=== PATIENT | female | born 1985 | race Caucasian/White ===

== ENCOUNTER → 2018-01-07 | Outpatient (CLI) | payer MEDICAID ==
[~2018-01-07] MED LIST: ADDERALL 10 MG10 MG PO; ADDERALL 5 MG TA5 M1 PO; BACLOFEN20 MG PO; CARBAMAZEPINE200 M2 PO; CARBAMAZEPINE200 M4 PO; HM ACETAMINOPH1 EAC1 PO; HYDROCODONE-AP1 EAC6 PO; IBUPROFEN200 M2 PO; LYRICA 75 MG CA75 MG PO; NEURONTIN 300300 M1 PO; PROVIGIL 100 M100 M1 PO; TIZANIDINE HCL4 M1 PO
--- NOTE | 2018-01-12 07:49 | PAINCON ---
[facility] [address] [place] [address] PAIN MANAGEMENT CONSULTATION Name: JOSEFA HERNANDEZ 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 Comorbidity includes hypersomnolence. Last visit, 10/15/2017. We added Adderall 10 mg b.i.d. with good efficacy. She is continued on Lyrica 75 mg b.i.d., carbamazepine 200 mg t.i.d., baclofen 20 mg 1-2 tablets b.i.d. Returns to the pain clinic today noting medications are providing sufficient analgesia to participate in activities of daily living. Rates her subjective pain score of 5 on a VAS. Chronic pain, right arm and leg. She does have choreoathetoid movement in the right upper extremity. She did quit smoking greater than a year ago and to her credit, she has been stable with this. PHYSICAL EXAMINATION: VITAL SIGNS: Show a 5 feet 1 inch, 136 pounds female, BMI is 25.8 kilograms per meter squared. Blood pressure 106/69, pulse 91, respirations 16. NEUROLOGIC: Alert and oriented to person, place and time, judged to be a reasonable historian. MUSCULOSKELETAL: She typically sits on her right arm to avoid choreoathetoid movement. Has an antalgic gait favoring the left leg. She has limited strength and range of motion in the right lower extremity, though better controlled than she does in the upper extremity. ASSESSMENT: Neuropathic pain, status post cerebrovascular accident, right upper extremity spasticity, component of hypersomnolence, doing well on current medication. We reviewed the fact that opiate medications are being used to provide analgesia adequate to support activities of daily living, not attempting to achieve a specific pain score on the 0-10 Visual Analog Scale. The current opiate medications are providing sufficient analgesia to allow the patient to participate in activities of daily living. The patient is not exhibiting any aberrant behavior suggestive of drug diversion. The patient is not having any adverse reactions to medications. The patient is not suffering from daytime somnolence or mental acuity changes. The patient is managing opiate-induced constipation with appropriate exog-xfb-owdjfak agents and dietary considerations. The patient was counseled on concern for caution with operating a motor vehicle [place] [address] PAIN MANAGEMENT CONSULTATION Name: JOSEFA HERNANDEZ Room: [facility] Spring#: [id number] Admission: 01/07/18 Attend Phys: Willis Caldwell Discharge: Date of : 81 Report #: [id number] A physical exam was performed and the patient's functional status was evaluated. All patients with back pain were advised against the bed rest greater than 4 days and were advised to return to normal activities. Pain score assessment was noted and the treatment plan was reviewed with the patient. All current medications, both prescribed and OTC were reviewed and reconciled on the electronic medical record. Tobacco screening was accomplished and smoking cessation was advised when indicated. BMI was noted and diet/exercise modification was recommended for all patients following outside normal parameters. I reviewed with the patient today their responsibilities to safeguard prescription medications, reviewed their responsibility to utilize medications only as prescribed by the physician. They are to seek and receive pain medications only from 1 physician group ( [facility]). They are to use 1 pharmacy and keep the clinic informed if they change pharmacies. Their responsibilities include making followup visits in a timely fashion and to avoid abrupt discontinuation of medication usage. Their responsibilities further include bringing their medications (bottles from the pharmacy with residual pills) to the visit for possible confirmation of pill counts and the patient understands it is their responsibility to submit to random drug screens to ensure both that the medications prescribed are present, and that no other controlled substances are present. All prescriptions provided today were generated electronically. RECOMMENDATIONS: 1. Buccal drug swab today. Should show Adderall is the only controlled substance, should show Lyrica, carbamazepine and baclofen. 2. Renew current medication unchanged, Adderall 10 mg b.i.d., Lyrica 75 mg b.i.d. She does not require renewal for carbamazepine 200 mg 1 tablet 2-3 times a day, baclofen 20 mg 1-2 tablets b.i.d. <ELECTRONICALLY SIGNED> By: Noe Persaud DO 01/12/18 0749 1230 [id number] Persaud DO /nt
== END ==
LOC: M.PC 01:42
DX: M79.2 Neuralgia and neuritis, unspecified (principal); M79.601 Pain in right arm; M79.604 Pain in right leg; G47.10 Hypersomnia, unspecified; R25.2 Cramp and spasm; Z86.73 Personal history of transient ischemic attack (TIA), and cerebral infarction without residual deficits

== ENCOUNTER → 2018-04-01 | Outpatient (CLI) | payer MEDICAID ==
--- NOTE | 2018-04-02 07:19 | PAINCON ---
[facility] [address] [place] [address] PAIN MANAGEMENT CONSULTATION Name: JOSEFA HERNANDEZ Room: [facility] Spring#: [id number] Admission: 04/01/18 Attend Phys: Willis Caldwell Discharge: Date of : 81 Report #: [id number] THIS REPORT FOR: //name// CC: Luis Carlos Rodrigez FAM unknown Noe Persaud DATE OF SERVICE: 04/01/2018 The patient is a very pleasant 32-year-old female I have treated off and on since 2008 for significant neuropathic pain. She had a childhood cerebrovascular accident (age 2). Has significant neuropathic pain, right upper and lower extremity. She exhibits choreoathetoid movement of the right arm, over which she has no control. She has been remarkably stable on current medication. She has some attention deficit disorder and medication induced somnolence. She uses baclofen 20 mg typically 2 tablets 3 times a day, carbamazepine 200 mg 1 tablet b.i.d. with an occasional second tablet in the evening, limit 75 tablets for 30 days, Lyrica 75 mg b.i.d., and Adderall 10 mg b.i.d. with some dwindling efficacy. Last random drug screen 01/07/2018 was positive for prescribed medications and no others. She does have nicotine in the random drug screen. She quit smoking years ago, but does occasionally use an e-cigarette. PHYSICAL EXAMINATION: Today is unchanged. Very pleasant 5 feet 1 inch, 131-pound female, BMI is 25 kilograms per meter squared. Blood pressure 115/89, pulse 79, respirations 16. Alert and oriented to person, place and time, judged to be a reasonable historian. Does have choreoathetoid movement of the right arm, weakness in the right leg, neuropathic pain on right side. Doing well on current medication. We reviewed the fact that opiate medications are being used to provide analgesia adequate to support activities of daily living, not attempting to achieve a specific pain score on the 0-10 Visual Analog Scale. The current opiate medications are providing sufficient analgesia to allow the patient to participate in activities of daily living. The patient is not exhibiting any aberrant behavior suggestive of drug diversion. The patient is not having any adverse reactions to medications. The patient is not suffering from daytime somnolence or mental acuity changes. The patient is managing opiate-induced constipation with appropriate ltgm-fit-jwwjkii agents and dietary considerations. The patient was counseled on concern for caution with operating a motor vehicle while using opiate medications. A physical exam was performed and the patient's functional status was evaluated. All patients with back pain were advised against the bed rest greater than 4 days and were advised to return to normal activities[place] [address] PAIN MANAGEMENT CONSULTATION Name: JOSEFA HERNANDEZ [facility] [id number] Admission: 04/01/18 Attend Phys: Willis Caldwell Discharge: Date of : 81 Report #: [id number] noted and the treatment plan was reviewed with the patient. All current medications, both prescribed and OTC were reviewed and reconciled on the electronic medical record. Tobacco screening was accomplished and smoking cessation was advised when indicated. BMI was noted and diet/exercise modification was recommended for all patients following outside normal parameters. I reviewed with the patient today their responsibilities to safeguard prescription medications, reviewed their responsibility to utilize medications only as prescribed by the physician. They are to seek and receive pain medications only from 1 physician group ( [facility]). They are to use 1 pharmacy and keep the clinic informed if they change pharmacies. Their responsibilities include making followup visits in a timely fashion and to avoid abrupt discontinuation of medication usage. Their responsibilities further include bringing their medications (bottles from the pharmacy with residual pills) to the visit for possible confirmation of pill counts and the patient understands it is their responsibility to submit to random drug screens to ensure both that the medications prescribed are present, and that no other controlled substances are present. All prescriptions provided today were generated electronically. ASSESSMENT: Chronic neuropathic pain status post childhood cerebrovascular accident with hypersomnolence due to medication and possible component of attention deficit disorder. RECOMMENDATIONS: We will increase Adderall to 1 in the morning and 2 in the afternoon, dispense 90 tablets. Continue Lyrica 75 mg b.i.d., baclofen 20 mg 2 tablets t.i.d., 180 tablets and carbamazepine 200 mg as directed, 1 in the morning, 1-2 at night, 75 tablets for 30 days. I did tell the patient I will be leaving the practice. She should contact her third alliance party payer and see if there is another pain clinic physician in her network. Otherwise, I will ask Dr. Tim Benitez to continue caring for this delightful hardworking 32-year-old mother of, I believe 3 children. Discharged in good and stable condition. <ELECTRONICALLY SIGNED> By: Noe Persaud DO 04/02/18 0719 1506 26Noe Persaud DO /nt
== END ==
LOC: M.PC 12-03 08:50
DX: G89.29 Other chronic pain (principal); M79.2 Neuralgia and neuritis, unspecified; M79.621 Pain in right upper arm; M79.661 Pain in right lower leg

== ENCOUNTER → 2018-07-02 | Outpatient (CLI) | payer MEDICAID ==
--- NOTE | 2018-07-24 17:38 | PAINCON ---
[address] [address] PAIN MANAGEMENT CONSULTATION Name: JOSEFA HERNANDEZ Room: [facility] JS Spring#: [id number] Admission: 07/02/18 Attend Phys: Carson Benitez MD Discharge: Date of : 81 Report #: [id number] THIS REPORT FOR: //name// CC: Luis Carlos Benitez DATE OF SERVICE: 07/02/2018 FOLLOWUP HISTORY: The patient is a 33-year-old female who has been followed in the pain clinic by Dr. Noe Persaud. She has been working with her for a number of years. She has returned to the pain clinic for renewal of her medications. As you may recall, she is a very pleasant 33-year-old female who has had significant neuropathic pain and problems since 2008. When she was a child, she had a cerebrovascular accident at age 2. She has significant neuropathic pain in right upper and lower extremities. She exhibits choreoathetoid movement of her right arm, over which she has no control. She has been remarkably steady over her course with her current medication management. She has some problems with attention deficit disorder and medication-induced somnolence. She has been using baclofen 20 mg with carbamazepine and Lyrica. Adderall is helpful as well. The patient has been appropriate with her drug screens. She has returned today for renewal of her medications. ALLERGIES: No known drug allergies. MEDICATIONS: Adderall 10 mg, baclofen 20 mg, carbamazepine 200 mg 1-2 tablets at bedtime, ibuprofen 200 mg, and Lyrica 75 mg. PAST MEDICAL HISTORY: Cerebrovascular accident at age 2 with neuropathic pain. PAST SURGICAL HISTORY: Right foot pain about 1989. Z-plasty of the tendons of her right foot for release of contractures. SOCIAL HISTORY: She is now housewife. REVIEW OF SYSTEMS: As per HPI. PAIN CLINIC ASSESSMENT: 1. The patient is not being treated for osteoarthritis or rheumatoid arthritis. 2. Height 5 feet 1 inch, weight 126 pounds, BMI is 23.8. Vital signs: Blood pressure 141/92, heart rate 104, respiratory rate 16, room air saturation 98%, and temperature 98.1. Pain score 4/10. 3. Pain intensity, usually 1-2. 4. Fall risk. The patient has not fallen in the last 3 months. 5. Blood thinner. The patient is not on a blood thinning medication. 6. Hypertension. The patient [place] [address] PAIN MANAGEMENT CONSULTATION Name: JOSEFA HERNANDEZ Room: [facility]#: [id number] Admission: 07/02/18 Attend Phys: Carson Benitez MD Discharge: Date of : 81 Report #: [id number] 7. Opioid therapy greater than 6 weeks. The patient does receive medications through the pain clinic, which she finds helpful in controlling her neuropathic pain. 8. Functional assessment tool. 9. Recreational drug use. The patient denies use of recreational drugs. 10. Tobacco: The patient smokes less than half pack of cigarettes per day, smoked 20 years. 11. Alcohol: The patient denies use of alcoholic beverages. PHYSICAL EXAMINATION: GENERAL: The patient is a well-developed white female, who appears her stated age. She has pain and discomfort involving her fingers on the right arm and right leg. HEART: Regular rate. ABDOMEN: Nontender. MUSCULOSKELETAL: The patient has a flaccid right arm. She does have a choreoathetoid movement of her right arm, weakness in the right leg, neuropathic pain on the right side. IMPRESSION: Chronic pain involving the right side, status post cerebrovascular accident at age 2 years. RECOMMENDATIONS: We will continue with her current medical regimen of baclofen 20 mg, Adderall 10 mg, the patient will follow up in the future as needed. We would like to thank you for letting us participate in her care. We hope she continues to improve. <ELECTRONICALLY SIGNED> By: Carson Benitez MD 07/24/18 1738 [id number] [id number]. Tim Benitez MD /nt
== END ==
LOC: M.PC 06-25 09:40
DX: G89.29 Other chronic pain (principal); M25.511 Pain in right shoulder; M25.561 Pain in right knee; Z79.899 Other long term (current) drug therapy

== ENCOUNTER → 2018-09-24 | Outpatient (CLI) | payer MEDICAID ==
--- NOTE | 2018-09-30 16:38 | PAINCON ---
[address] [address] PAIN MANAGEMENT CONSULTATION Name: JOSEFA HERNANDEZ Room: [facility] Spring#: [id number] Admission: 09/24/18 Attend Phys: Carson Benitez MD Discharge: Date of : 81 Report #: [id number] THIS REPORT FOR: //name// CC: Luis Carlos Benitez DATE OF SERVICE: 09/24/2018 CHIEF COMPLAINT: Here for medication renewal. HISTORY OF PRESENT ILLNESS: The patient is a 33-year-old female, who has been followed in the pain clinic for some time. As you may recall, she has chronic pain. She has returned today for renewal of her medications. She continues to have significant neuropathic pain, which has been problematic since 2008. She suffered a cardiovascular accident at age 2. She has had significant neuropathic pain on her right upper and lower extremities. She exhibits choreoathetoid movements of her right arm. She has little to no control. She has been stable over the course of her medication management. Receives her medications from one source, the pain clinic. Feels that things are working reasonably well. She has some problems with attention deficit disorder. She continues to use baclofen and carbamazepine in conjunction with Lyrica. Adderall, continues to be helpful as well. Feels that these medications are appropriate and continue to be helpful and has returned today for renewal of them. ALLERGIES: No known drug allergies. CURRENT MEDICATIONS: Adderall 10 mg, baclofen 20 mg, carbamazepine 200 mg 1-2 tablets at bedtime, ibuprofen 200 mg, and Lyrica 75 mg. PAIN CLINIC ASSESSMENT/PQRS: 1. The patient is not being treated for osteoarthritis or rheumatoid arthritis. 2. Height 5 feet 1 inch, weight 124 pounds, BMI is 24. 3. Vital signs: Blood pressure 112/68, heart rate 100, respiratory rate 16, room air saturation again was 100, and temperature 98.0. 4. Pain intensity 5/10. 5. Fall risk. The patient has not fallen in the last 3 months. 6. Blood thinner. The patient is not on a blood thinning medication. 7. Hypertension, none. 8. Opioid therapy greater than 6 weeks. The patient receives her medication from one source, the pain clinic. 9. Risk assessment tool, low for opioid use. 10. Functional assessment tool. 11. Recreational drug use. The patient denies use of recreational drugs. 12. Tobacco: The patient smokes 1-2 cigarettes per day. We discussed the virtues of smoking cessation. The patient [place] [address] PAIN MANAGEMENT CONSULTATION Name: JOSEFA HERNANDEZ Room: [facility]#: [id number] Admission: 09/24/18 Attend Phys: Carson Benitez MD Discharge: Date of : 81 Report #: [id number] health. 13. Alcohol: The patient rarely drinks alcoholic beverages. PHYSICAL EXAMINATION: GENERAL: The patient is a well-developed female. Appears her stated age. She is alert and oriented x 3. NECK: Has no JVD or adenopathy. EXTREMITIES: Right upper extremity is flaccid and the patient has lack of control. Right side lower extremity is weak as well. The patient walks with an antalgic gait. ABDOMEN: Nontender. Bowel sounds present. MUSCULOSKELETAL: The patient without significant kyphosis, scoliosis. IMPRESSION: Chronic pain involving the right side. Status post cerebrovascular accident at age 2. RECOMMENDATIONS: We discussed treatment options with the patient. We will continue with her current medications. We have dispensed her medications, which include Adderall 10 mg 1 p.o. a.m., 2 at noon. Baclofen 20 mg 2 tablets a.m. t.i.d. Carbamazepine 2 tablets a.m., at bedtime. Lyrica 75 mg b.i.d. We would like to thank you for letting us participate in her care. We hope she continues to improve. <ELECTRONICALLY SIGNED> By: Carson Benitez MD 09/30/18 1638 [id number] [id number]. Tim Benitez MD /brian
== END ==
LOC: M.PC 05:07
DX: G89.29 Other chronic pain (principal); G62.9 Polyneuropathy, unspecified; Z79.899 Other long term (current) drug therapy; Z86.73 Personal history of transient ischemic attack (TIA), and cerebral infarction without residual deficits

== ENCOUNTER → 2018-12-17 | Outpatient (CLI) | payer MEDICAID ==
--- NOTE | ~2018-12-17 | PAINCON ---
[address] [address] PAIN MANAGEMENT CONSULTATION Name: JOSEFA HERNANDEZ Room: [facility] MARK GibbsKenn.#: [id number] Admission: 12/17/18 Attend Phys: Carson Benitez MD Discharge: Date of : 81 Report #: [id number] THIS REPORT FOR: //name// CC: Luis Carlos Hercules DATE OF SERVICE: 12/17/2018 CHIEF COMPLAINT: Here for medication renewal, things are going pretty well. HISTORY: The patient is a 33-year-old female who has been followed in the pain clinic because of chronic pain. As you may recall, she has right arm pain and weakness. She suffers from neuropathic pain, which has been problematic since 2008. She suffered a cardiovascular accident at age 2. She has had problems with the neuropathic pain for these years. Has a little control of her right arm. Overall, feels that things are stable with use of her current medication regimen. She does have some problem with attention deficit disorder. Continues to find that baclofen, carbamazepine and Lyrica are helpful. Adderall is well tolerated. She has returned today for renewal of her medications. ALLERGIES: No known drug allergies. MEDICATIONS: Adderall 10 mg, baclofen 20 mg, carbamazepine 200 mg 2 tablets to 2 tablets at bedtime, ibuprofen 200 mg, Lyrica 75 mg. PAIN CLINIC ASSESSMENT/PQRS: 1. The patient is not being treated for rheumatoid arthritis or osteoarthritis. 2. Height 5 feet 1 inch, weight 124 pounds, BMI is 24. 3. Vital Signs: Blood pressure 106/69, heart rate 84, respiratory rate 16, room air saturation 99%, temperature 98.1. 4. Pain intensity score 6/10. 5. Fall risk. The patient has not fallen in the last 3 months. 6. Blood thinner. The patient is not on a blood thinning medication. 7. Hypertension. The patient is not being treated for hypertension. 8. Opioid greater than 6 weeks. The patient receives her [facility]. 9. Risk assessment tool, low for opioid use. 10. Functional assessment tool. 11. Recreational drug use. The patient denies use of recreational drugs. 12. Tobacco: The patient smokes 1-2 cigarettes per day. Discussed the virtues of smoking cessation. 13. Alcohol: The patient denies use of alcoholic beverages. PHYSICAL EXAMINATION: GENERAL: The patient is a well-developed, well-[place] [address] PAIN MANAGEMENT CONSULTATION Name: JOSEFA HERNANDEZ Room: [facility]#: [id number] Admission: 12/17/18 Attend Phys: Carson Benitez MD Discharge: Date of : 81 Report #: [id number] her stated age. She is alert and oriented x 3. Affect is appropriate. Speech is fluent. HEENT: Normocephalic, atraumatic. Extraocular eye muscles intact. Sclerae nonicteric. Mucous membranes are moist. Upper extremity muscle straight is lacking 3 or 2/5. Had flaccid weakness. Left upper extremity, judged to be 5/5 for the major muscle groups. The patient does have a slight antalgic gait. ABDOMEN: Nontender. Bowel sounds present. MUSCULOSKELETAL: Without significant scoliosis, kyphosis or lordosis. IMPRESSION: 1. Chronic pain on the right side, status post cerebrovascular accident in 06/20/2018. 2. Tobacco use. RECOMMENDATIONS: We discussed treatment options with the patient. At this juncture, we will continue with her current medications. A script for her medications for Adderall 10 mg 1 p.o. q.a.m. and 2 at noon have been written. Baclofen 20 mg 2 tablets t.i.d., carbamazepine 2 tablets in a.m., Lyrica 75 mg b.i.d. The patient will continue with her current medications. She will call us if she has any concerns. We would like to thank you for letting us participate in her care. We hope she continues to improve. By: [id number] [id number]. Tim Benitez MD /YOLANDA
== END ==
LOC: M.PC 09:00
DX: I10 Essential (primary) hypertension (principal); G89.29 Other chronic pain; Z72.0 Tobacco use; Z86.73 Personal history of transient ischemic attack (TIA), and cerebral infarction without residual deficits; Z79.899 Other long term (current) drug therapy

== ENCOUNTER → 2018-12-25 | Outpatient (CLI) | payer MEDICAID | LOC: M.RAD 10:54 | DX: G56.02 Carpal tunnel syndrome, left upper limb (principal) ==

== ENCOUNTER → 2019-03-11 | Outpatient (CLI) | payer MEDICAID ==
--- NOTE | ~2019-03-11 | PAINCON ---
[address] [address] PAIN MANAGEMENT CONSULTATION Name: JOSEFA HERNANDEZ Room: [facility].#: [id number] Admission: 03/11/19 Attend Phys: Carson Benitez MD Discharge: Date of : 81 Report #: [id number] THIS REPORT FOR: //name// CC: Luis Carlos Benitez DATE OF SERVICE: 03/11/2019 CHIEF COMPLAINT: Right arm pain. HISTORY: The patient is a 33-year-old female who has been followed in the pain clinic. As you recall, she suffers from right hemiparesis with neuropathic pain. She has had a thalamic pain syndrome. This was problematic after she suffered a cardiovascular accident at age 2. She continues to have weakness in her right arm. She has very little control of extremity. She feels that her medications are helpful. She states that she always takes her medications. She has had no complication from them. Notes that if she does not take the Adderall that she finds that she is quite sleepy. Overall, things are going reasonably well. She is excited about this spring time and warming of temperatures. ALLERGIES: No known drug allergies. CURRENT MEDICATIONS: Adderall 10 mg, baclofen 20 mg, carbamazepine 20 mg 2 tablets at bedtime, 2 tablets in the morning, ibuprofen 200 mg, and Lyrica 75 mg. PAIN CLINIC ASSESSMENT/PQRS: 1. The patient has not been treated for rheumatoid arthritis or osteoarthritis. 2. Height 5 feet 1 inch, weight 120 pounds, BMI is 22.9. 3. Vital Signs: Blood pressure 114/76, heart rate 87, respiratory rate 16, room air saturation 98%, temperature 98.1. 4. Pain intensity 0/10. 5. Fall history: The patient has not fallen in the last 3 months. 6. Blood thinner. The patient is not on a blood thinning medication. 7. Hypertension. The patient is not being treated for hypertension. 8. Opiates greater than 6 weeks. The patient receives her medications from [facility] source, [facility]. 9. Risk assessment tool, low for opioid use. 10. Functional assessment tool. 11. Recreational drug use. The patient denies use of recreational drugs. 12. Tobacco: The patient smokes 1-2 cigarettes per day. Discussed the benefits of smoking cessation. 13. Alcohol: The patient denies use of alcoholic beverages, except on once or twice yearly. PHYSICAL EXAMINATION: [place] [address] PAIN MANAGEMENT CONSULTATION Name: JOSEFA HERNANDEZ Room: [facility]#: [id number] Admission: 03/11/19 Attend Phys: Carson Benitez MD Discharge: Date of : 81 Report #: [id number] GENERAL: The patient is a well-developed, well-nourished white female. Appears her stated age. She is alert and oriented x 3. Her affect is appropriate. Speech is fluent. HEENT: Normocephalic, atraumatic. Extraocular eye muscles intact. Sclerae nonicteric. Mucous membranes moist. HEART: Regular rate. ABDOMEN: Nontender. EXTREMITIES: Upper extremity muscle strength on the left is 5/5. Right, the patient has some flaccid weakness in the upper extremity. She uses her left arm to move her right arm. The patient has a slight antalgic gait. ABDOMEN: Nontender. Bowel sounds present. MUSCULOSKELETAL: Without significant scoliosis, kyphosis or lordosis. IMPRESSION: 1. Chronic pain on the right side, status post cardiovascular accident with neuropathic pain. 2. Thalamic pain syndrome. 3. Tobacco use. RECOMMENDATIONS: We discussed treatment options with the patient. Risk and benefits of her medications have been discussed. She feels that her medications are working well. She has had no problems with them. We would like to continue with her medications. She will return in 3 months. A script for the carbamazepine 200 mg 1 p.o. 2 tablets q.a.m. 2 tablets at bedtime, Adderall 10 mg 1 p.o. a.m., 2 at noon. We would like to thank you for letting us participate in her care. We hope she continues to improve. By: [id number]. Tim Benitez MD /brian
== END ==
LOC: M.PC 04:22
DX: G81.91 Hemiplegia, unspecified affecting right dominant side (principal); G89.0 Central pain syndrome; F17.210 Nicotine dependence, cigarettes, uncomplicated; Z79.899 Other long term (current) drug therapy; Z79.891 Long term (current) use of opiate analgesic; Z86.73 Personal history of transient ischemic attack (TIA), and cerebral infarction without residual deficits

== ENCOUNTER → 2019-06-03 | Outpatient (CLI) | payer MEDICAID ==
--- NOTE | ~2019-06-03 | PAINCON ---
[address] [address] PAIN MANAGEMENT CONSULTATION Name: JOSEFA HERNANDEZ Room: [facility].#: [id number] Admission: 06/03/19 Attend Phys: Carson Benitez MD Discharge: Date of : 81 Report #: [id number] THIS REPORT FOR: //name// CC: Luis Carlos Hercules DATE OF SERVICE: 06/03/2019 CHIEF COMPLAINT: Here for pain medicines for neuropathic pain. HISTORY: The patient is a 33-year-old female who has been followed in the Pain Clinic because of chronic pain. She has some weakness on her right side. She has chronic pain. As you recall, she suffers from right hemiparesis with neuropathic pain. She had a thalamic stroke at age 2. She continues to have weakness in her right arm. She has little control of the extremity. She is noting increased pain and discomfort in the shoulder. She has been told that she has bone spurs in her shoulder. She is going to undergo surgery to help decrease this pain condition. Feels that her medications continue to be helpful. She has returned today with the hopes of renewing her medications. ALLERGIES: No known drug allergies. CURRENT MEDICATIONS: Adderall 10 mg, baclofen 20 mg, carbamazepine 20 mg 2 tablets at bedtime, 2 tablets in the morning, ibuprofen 200 mg, and Lyrica 75 mg. PAIN CLINIC ASSESSMENT/PQRS: 1. The patient has not been treated for rheumatoid arthritis or osteoarthritis, but has some arthritic changes in her right shoulder with bone spurs. 2. Height 5 feet 1 inch, weight 115 pounds, BMI is 21.8. 3. Vital Signs: Blood pressure 115/73, heart rate 103, respiratory rate 18, room air saturation 98%. 4. Pain intensity is 6/10. 5. Fall history: The patient has not fallen in the last 3 months. 6. Blood thinner. The patient is not on a blood thinning medication. 7. Hypertension. The patient is not being treated for hypertension. 8. Opioids greater than 6 weeks. The patient [facility] her [facility]. 9. Risk assessment tool, low for opioid use. 10. Functional assessment tool. 11. Recreational drug use. The patient denies use of recreational drugs. 12. Tobacco: The patient does smoke tobacco and we have had a discussion regarding the benefits of smoking cessation. Smokes 1-2 cigarettes per day. The patient [place] [address] PAIN MANAGEMENT CONSULTATION Name: JOSEFA HERNANDEZ Room: [facility]#: [id number] Admission: 06/03/19 Attend Phys: Carson Benitez MD Discharge: Date of : 81 Report #: [id number] PHYSICAL EXAMINATION: GENERAL: The patient is a well-developed, well-nourished white female. Appears her stated age. She is alert and oriented x 3. Her affect is appropriate. Speech is fluent. HEENT: Normocephalic, atraumatic. Extraocular eye muscles intact. Sclerae nonicteric. Mucous membranes are moist. NECK: Without adenopathy or JVD. The patient has some weakness, which is flaccid on the right arm in the upper extremity. Use her left hand to control to move her right arm. Has some pain and discomfort in the right shoulder area. Slight antalgic gait. ABDOMEN: Nontender. Bowel sounds present. MUSCULOSKELETAL: Without significant scoliosis, kyphosis or lordosis. A 5/5 strength in the left upper extremity flaccid, left arm. IMPRESSION: 1. Chronic pain on the right side, status post cardiovascular accident at age 2 with neuropathic pain. 2. Thalamic pain syndrome. 3. Tobacco use. The patient states she continues to decrease use of tobacco. RECOMMENDATIONS: We discussed treatment options with the patient. At this juncture, we will continue with her medications. We have discussed the risks and benefits of opioids with the patient. Possibility of addiction has been discussed. The patient does not feel like she is having an addiction problem. She is aware that chronic use of opioid medications over a long period of time can become less effective secondary to tolerance. She is aware of the opioid crisis. She has seen information and we have discussed 70,000 people as a result of opioid dose last year. She keeps her medications in a guarded area. She feels that the medications are helpful. She may have an increased pain after her shoulder surgery. Hopefully with local anesthetic and with some additional opioids provided by her surgeon, the patient will find that this is not problematic. Should she have problems with her surgery with increased pain, she can call us and we will make some arrangements to increase her pain medication to accommodate the pain as a result of the surgery. A script for her medications of carbamazepine 200 mg 1 p.o., 2 tablets q.a.m., 2 tablets at bedtime, Adderall 10 mg 1 p.o. at a.m. and 2 at noon have been rewritten. We would like to thank you for letting us participate in her care. We hope she continues to improve. By: [id number]. Tim Benitez MD /nt
== END ==
LOC: M.PC 04:32
DX: M79.2 Neuralgia and neuritis, unspecified (principal); G89.0 Central pain syndrome; Z72.0 Tobacco use; Z86.73 Personal history of transient ischemic attack (TIA), and cerebral infarction without residual deficits

== ENCOUNTER → 2019-08-26 | Outpatient (CLI) | payer MEDICAID ==
[~2019-08-26] MED LIST changes: +ADDERALL 20 MG20 MG PO
--- NOTE | 2019-09-08 09:09 | PAINCON ---
[address] [address] PAIN MANAGEMENT CONSULTATION Name: DAVIDJOSEFA M Room: [facility].#: [id number] Admission: 08/26/19 Attend Phys: Carson Benitez MD Discharge: Date of : 81 Report #: [id number] THIS REPORT FOR: //name// CC: Luis Carlos Benitez DATE OF SERVICE: 08/26/2019 CHIEF COMPLAINT: Here for medication renewal. HISTORY: The patient is a 34-year-old female who has been followed in the pain clinic because of chronic pain. As you may recall, she suffers from chronic neuropathic pain. The patient has a history of right-sided weakness. She suffered from a right hemiparesis with neuropathic pain. This was secondary to a thalamic stroke at age 2. Continues to have weakness in her right arm. Has little controlled in that extremity. She has noted some increased pain and discomfort in her shoulder. She was told that she has some bone spurs in her shoulder. She is to undergo surgery to help decrease the pain. She has returned today for use of her medications. She feels that her right arm and left leg continues to be problematic. She notes that in the morning. She has some difficulty staying awake. She would like to increase her Adderall by 10 mg in the morning. She feels that this would be more helpful. She also continues to have pain in the rotator cuff on the right arm, this remains painful. She rates her pain as a 4-5/10. ALLERGIES: No known drug allergies. CURRENT MEDICATIONS: 1. Adderall 10 mg a.m. and 20 mg later in the day. 2. Baclofen 20 mg. 3. Carbamazepine 20 mg 2 tablets at bedtime, 2 tablets in the morning. 4. Ibuprofen 200 mg. 5. Lyrica 75 mg. PAIN CLINIC ASSESSMENT AND PQRS: 1. The patient is not being treated for rheumatoid arthritis, but has some arthritic changes in her right shoulder with bone spurring. 2. Height 5 feet 1 inch, weight 112 pounds, BMI is 21.5. 3. Vital Signs: Blood pressure 129/68, heart rate 117, respiratory rate 16, room air saturation is 99%, temperature is 98.2. 4. Pain score 4-510. 5. Fall history: The patient has not fallen in the last 3 months. 6. Blood thinner. The patient is not on a blood thinning medication. 7. Hypertension. The patient is not being treated for hypertension. 8. Opioids greater than 6 weeks. The patient [facility] [place] [address] PAIN MANAGEMENT CONSULTATION Name: JOSEFA HERNANDEZ Room: [facility]#: [id number] Admission: 08/26/19 Attend Phys: Carson Benitez MD Discharge: Date of : 81 Report #: [id number] 9. Risk assessment tool, low for opioid use. 10. Functional assessment tool. 11. Recreational drug use. The patient denies use of recreational drugs. 12. Tobacco: The patient does smoke. Has smoked 1-2 cigarettes per day. The patient denies use of alcoholic beverages. PHYSICAL EXAMINATION: GENERAL: The patient is a well-developed, well-nourished white female. Appears her stated age. She is alert and oriented x 3. Her affect is appropriate. Speech is fluent. HEENT: Normocephalic, atraumatic. Extraocular eye muscles intact. Sclerae nonicteric. Mucous membranes are moist. NECK: Without adenopathy or JVD. The patient has some flaccid paralysis of the right shoulder area. She is able to use her left hand to control the movement of her right shoulder. Has some discomfort in the right shoulder. Has a slight antalgic gait. ABDOMEN: Nontender. Bowel sounds present. MUSCULOSKELETAL: Without significant scoliosis, kyphosis or lordosis. Muscle strength on the left side is 5/5 in the upper extremity and flaccid on the left. The patient has some weakness on the left leg on the left side. IMPRESSION: 1. Chronic pain, on the right side, status post cardiovascular event at age 2 with neuropathic pain. 2. Thalamic pain syndrome. 3. Tobacco: The patient continues to smoke. Does not use vaporization of tobacco. RECOMMENDATIONS: We discussed treatment options with the patient. At this juncture, we will continue with her medications. She feels that the medications are helpful. She feels that she is not as alert as she would like to be in the morning. She does monitor her kids. We will increase the Adderall to 20 mg one p.o. b.i.d. Hopefully, this will help to decrease some of the somnolence that she has experiences in the morning. We will continue with her baclofen medication 20 mg t.i.d., we will continue with carbamazepine as well as Lyrica. A script for her medications of Adderall 20 mg t.i.d. and baclofen, carbamazepine and ibuprofen have been rewritten. The patient will call us if she has any concerns. We would like to thank you for letting us participate in her care. We hope she continues to improve. <ELECTRONICALLY SIGNED> By: Carson Benitez MD 09/08/19 0909 [id number]. Tim Benitez MD /brian
== END ==
LOC: M.PC 05:59
DX: Z76.0 Encounter for issue of repeat prescription (principal); G89.0 Central pain syndrome; F17.200 Nicotine dependence, unspecified, uncomplicated; Z79.899 Other long term (current) drug therapy

== ENCOUNTER → 2019-11-16 | Outpatient (CLI) | payer MEDICAID ==
--- NOTE | ~2019-11-16 | PAINCON ---
[address] [address] PAIN MANAGEMENT CONSULTATION Name: DAVIDJOSEFA Sai Room: [facility].#: [id number] Admission: 11/16/19 Attend Phys: Carson Benitez MD Discharge: Date of : 81 Report #: [id number] THIS REPORT FOR: //name// CC: Luis Carlos Hercules DATE OF SERVICE: 11/16/2019 CHIEF COMPLAINT: Pain in the right arm and right leg. HISTORY: The patient is a 34-year-old female who has been followed in the pain clinic. As you recall, she has chronic pain involving her right side. She suffers from chronic neuropathic pain. She has a history of right-sided weakness. This resulted from a right hemispheric stroke. This was in the thalamic area at age 2. She continues to have weakness on the right side. She has weakness in the upper extremity as well as the right lower extremity. Describes her pain as a 4/10 at this point. She has pain in her shoulder. She has been told that she has a bone spur in her shoulder. She has returned today for renewal of her medications. Overall, things are going reasonably well. She is not having any problems with her medications. She feels that the medications continue to enable her to engage in activities of daily living, which would be quite problematic without their use. She keeps her medications in a guarded area. ALLERGIES: No known drug allergies. CURRENT MEDICATIONS: Adderall 10 mg a.m., 20 mg later in the day; baclofen 20 mg; gabapentin ____ mg 2 tablets at bedtime, 2 tablets in the morning; ibuprofen 200 mg; Lyrica 75 mg. PAIN CLINIC ASSESSMENT/PQRS: 1. The patient is not being treated for rheumatoid arthritis. She does have some arthritic changes in her right shoulder with bone spurring. 2. Height 5 feet 1 inch, weight 114 pounds, BMI is 21.6. 3. Vital signs: Blood pressure 103/71, heart rate 104, respiratory rate 16, room air saturation 98%, temperature 98.0. 4. Pain intensity 02/24. 5. Fall history: The patient has not fallen in the last 3 months. 6. Blood thinner. The patient is not on a blood thinning medication. 7. Hypertension. The patient is not being treated for hypertension. 8. Opioids greater than 6 weeks. The patient received medication from one source the pain clinic. 9. Risk assessment tool, low for opioid use. 10. Functional assessment tool. 11. Recreational drug use: [place] [address] PAIN MANAGEMENT CONSULTATION Name: DAVIDJOSEFA Room: [facility]#: [id number] Admission: 11/16/19 Attend Phys: Carson Benitez MD Discharge: Date of : 81 Report #: [id number] 12. Tobacco: The patient smokes 1-2 cigarettes per day. Denies use of alcoholic beverages. PHYSICAL EXAMINATION: GENERAL: The patient is a well-developed, well-nourished white female. Appears her stated age. She is alert and oriented x 3. Her affect is appropriate. Speech is fluent. HEENT: Normocephalic, atraumatic. Extraocular eye muscles intact. Sclerae nonicteric. Mucous membranes are moist. NECK: Without adenopathy or JVD. EXTREMITIES: Upper extremity, the patient shows some paralysis in the right shoulder area. Has some weakness involving her right hand. Has weakness in her right lower extremity. Walks with an antalgic gait. Has some difficulty controlling her hand and fingers. ABDOMEN: Nontender. MUSCULOSKELETAL: Without significant scoliosis, kyphosis, or lordosis. Muscle strength on the left side is judged to be 5/5 for the major muscle groups. IMPRESSION: 1. Chronic pain on the right side, status post cerebrovascular accident at age 2 and suffering a thalamic stroke. 2. Thalamic pain syndrome. 3. Tobacco: The patient continues to smoke and discussed the benefits of smoking cessation. RECOMMENDATION: We discussed treatment options with the patient. At this juncture, we will continue with her medications. She feels her medications are helpful. She is not having any conflicts with the medications. Feels that the Adderall is helpful. Notes that the Lyrica and baclofen medications remain helpful as well with spasms. The patient will continue with her medications. She has been provided a script and will continue with Adderall 20 mg t.i.d., baclofen, carbamazepine as they are written. She will call us if she has any concerns. We would like to thank you for letting us participate in her care. We hope she continues to improve. By: [id number] [id number]. Tim Benitez MD /brian
== END ==
LOC: M.PC 04:26
DX: G89.0 Central pain syndrome (principal); M79.601 Pain in right arm; M79.604 Pain in right leg

== ENCOUNTER → 2020-02-08 | Outpatient (CLI) | payer MEDICAID ==
--- NOTE | 2020-02-16 08:25 | PAINCON ---
[address] [address] PAIN MANAGEMENT CONSULTATION Name: JOSEFA HERNANDEZ Room: [facility].#: [id number] Admission: 02/08/20 Attend Phys: Carson Benitez MD Discharge: Date of : 81 Report #: [id number] THIS REPORT FOR: //name// cc: Luis Carlos Rodrigez Bruce R. DO THIS REPORT FOR: //name// CC: Luis Carlos Benitez DATE OF SERVICE: 02/08/2020 CHIEF COMPLAINT: Right arm pain. HISTORY: The patient is a 34-year-old female who has been followed in the pain clinic. As you may recall, she has chronic pain. She has pain involving the right side. The pain typically is neuropathic and chronic. She has right-sided weakness involving her upper extremity. She had a right hemispheric stroke. This occurred while she was 2 years old. The thalamic area was damaged. She continues to have weakness on the right side as a result of this. She has some pain in her right shoulder as well. She feels her medications continue to be helpful. She rates her pain today as 6/10. She also has some pain in her right leg. She has returned for renewal of her medications. She notes that walking, standing, and other activities can exacerbate her discomfort. She has been told that she has a bone spur involving the right shoulder. ALLERGIES: No known drug allergies. CURRENT MEDICATIONS: Adderall 10 mg a.m. and 20 mg later, baclofen 20 mg, gabapentin 300 mg 2 tablets at bedtime, 2 tablets in the morning, ibuprofen 200 mg, Lyrica 75 mg. PAIN CLINIC ASSESSMENT/PQRS: 1. The patient is not being treated for rheumatoid arthritis. She does have some arthritic changes in her right shoulder with a bone spur. 2. Height 5 feet 1 inch, weight 115 pounds, BMI is 22. 3. Vital signs: Blood pressure is 118/68, heart rate 93, respiratory rate 16, room air saturation is 98%. 4. Pain intensity 04/26. 5. Fall history: The patient has not fallen in the last 3 months. 6. Blood thinner. The patient is not on a blood thinning medication. 7. Hypertension. The patient is not being treated for hypertension. 8. Opioids greater than 6 weeks. The patient received medication from one source the pain clinic. 9. Risk assessment tool, low for opioid use. 10. [place] [address] PAIN MANAGEMENT CONSULTATION Name: JOSEFA HERNANDEZ Room: [facility]#: [id number] Admission: 02/08/20 Attend Phys: Carson Benitez MD Discharge: Date of : 81 Report #: [id number] 11. Recreational drug use: The patient denies. 12. Tobacco: The patient smokes 1-2 cigarettes per day. The patient denies use of alcoholic beverages. PHYSICAL EXAMINATION: GENERAL: The patient is a well-developed, well-nourished white female. Appears her stated age. She is alert and oriented x 3. Her affect is appropriate. Speech is fluent. HEENT: Normocephalic, atraumatic. Extraocular eye muscles intact. Sclerae nonicteric. Mucous membranes are moist. NECK: Without adenopathy. EXTREMITIES: Upper extremity muscle strength shows weakness on the right side with flaccid paralysis. Notes some weakness in the right hand. Weakness in her right lower extremity. Walks with an antalgic gait. Has some difficulty controlling her right hand and fingers. ABDOMEN: Nontender. LUNGS: Generally clear. Left-sided muscle strength 5/5 for the left upper extremity and 5/5 for the left lower extremity. IMPRESSION: 1. Chronic pain, on the right side, status post cerebrovascular accident at age 2 with suffering a thalamic stroke. 2. Thalamic pain syndrome. 3. Tobacco: The patient tries to continue to decrease of tobacco. RECOMMENDATIONS: We discussed treatment options with the patient. At this juncture, we will continue with her medications. She is aware that the opioid medications can be helpful. She finds that they continue to enable her to engage in activities with less discomfort. She is aware that these medications can become less effective over time because of development of tolerance. She has taken her medication as prescribed. She keeps her medications in a guarded area. She will also continue with using her Lyrica and baclofen, which helped with spasms. A script for Lyrica 75 mg 1 p.o. b.i.d. has been written. A script for Adderall 20 mg tablets 1 p.o. b.i.d. has been provided. The patient will also continue with baclofen 20 mg 1 p.o. every 8 hours p.r.n. The patient will also continue with carbamazepine 200 mg 1 p.o. t.i.d. We would like to thank you for letting us to participate in her care. She will call us if she has any concerns. <ELECTRONICALLY SIGNED> By: Carson Benitez MD 02/16/20 0825 [id number]. Tim Benitez MD /PMT
== END ==
LOC: M.PC 08:30
DX: M79.601 Pain in right arm (principal); G89.29 Other chronic pain

== ENCOUNTER → 2020-05-02 | Outpatient (CLI) | payer MEDICAID ==
--- NOTE | 2020-05-03 08:41 | PAINCON ---
[address] [address] PAIN MANAGEMENT CONSULTATION Name: JOSEFA HERNANDEZ Room: [facility].#: [id number] Admission: 05/02/20 Attend Phys: Carson Benitez MD Discharge: Date of : 81 Report #: [id number] THIS REPORT FOR: //name// cc: Luis Carlos Rodrigez Bruce R. DO ~ THIS REPORT FOR: //name// CC: Luis Carlos Benitez DATE OF SERVICE: 05/02/2020 CHIEF COMPLAINT: Here for medications and continued left and right arm pain. HISTORY: The patient is a 34-year-old female who has been followed in the pain clinic because of chronic pain involving her right arm. As you may recall, she has had some right-sided weakness. She has weakness in the upper as well as the left lower extremity. 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 The thalamic area was damaged. She continues to have weakness in the right side. She also has pain and discomfort in the right shoulder. She finds that her medications continue to be helpful. She has returned for renewal of the medication. She rates her pain as a 5/10. She notes walking, activities and standing can exacerbate her discomfort. Use of her medication as well as rest are beneficial. She has returned for renewal of her medications. ALLERGIES: No known drug allergies. CURRENT MEDICATIONS: Adderall 10 mg a.m., 20 mg later, baclofen 20 mg; gabapentin 300 mg 2 tablets at bedtime, 2 tablets in the morning; ibuprofen 200 mg, Lyrica 75 mg. PAIN CLINIC ASSESSMENT AND PQRS: 1. The patient is not being treated for rheumatoid arthritis. She does have some arthritic changes in her right shoulder with a bone spur. 2. Height 5 feet 1 inch, weight 122 pounds, BMI is 23.1. 3. Vital signs: Blood pressure 113/78, heart rate 94, respiratory rate 16, room air saturation 97%, temperature 98.3. 4. Pain intensity 5/10. 5. Fall history: The patient has not fallen in the last 3 months. 6. Blood thinner. The patient is not on a blood thinning medication. 7. Hypertension. The patient is not being treated for hypertension. 8. Opioids greater than 6 weeks. The patient receives medication from one source the pain clinic. 9. Risk assessment tool, low for opioid use. 10. Functional assessment tool reviewed. 11. Recreational [place] [address] PAIN MANAGEMENT CONSULTATION Name: JOSEFA HERNANDEZ Room: [facility]#: [id number] Admission: 05/02/20 Attend Phys: Carson Benitez MD Discharge: Date of : 81 Report #: [id number] 12. Tobacco: The patient smokes 4-5 cigarettes daily. 13. Alcohol. The patient denies use of alcoholic beverages. PHYSICAL EXAMINATION: GENERAL: The patient is a well-developed, well-nourished white female. Appears her stated age. She is alert and oriented x 3. Her affect is appropriate. Speech is fluent. HEENT: Normocephalic, atraumatic. Extraocular eye muscles intact. Sclerae nonicteric. Mucous membranes are moist. NECK: Without adenopathy. EXTREMITIES: Upper extremity, the patient has weakness on the right side with flaccid paralysis. Notes some pain and discomfort in her right shoulder. Has some weakness in her right hand. Has some weakness in the right lower extremity. The patient walks with an antalgic gait. Has difficulty controlling her right hand and fingers. ABDOMEN: Nontender. LUNGS: Generally clear. MUSCULOSKELETAL: Upper extremity muscle strength on the left side, judged 5/5. IMPRESSION: 1. Chronic pain, on the right side, status post cerebrovascular accident at age 2 with thalamic stroke. 2. Thalamic pain. 3. Tobacco: The patient continues to try to decrease use of tobacco. RECOMMENDATIONS: We discussed treatment options with the patient. At this juncture, we will continue with her medications. She will follow up in the future as needed. The patient has found that her medications are helpful. She is not having any complication from their use. She keeps them in a guarded area. She has been provided with a script for her medications. She will continue with Adderall 20 mg 2 tablets daily, carbamazepine 200 mg 2 tablets a.m., 2 tablets p.m. with 5 refills. The patient will also continue with Lyrica 75 mg b.i.d. She will also use baclofen 20 mg 2 tablets t.i.d. She will also continue with ibuprofen and note the effects on her GI tract. She will call us if she has any concerns. We would like to thank you for letting us participate in her care. We hope she continues to improve. <ELECTRONICALLY SIGNED> By: Carson Benitez MD 05/03/20 [id number] [id number]. Tim Benitez MD /[facility]
== END ==
LOC: M.PC 03:55
PROVIDERS: ATTEND Anesthesiology Pain Medicine
DX: G89.0 Central pain syndrome (principal); Z79.899 Other long term (current) drug therapy; Z72.0 Tobacco use

== ENCOUNTER → 2020-07-25 | Outpatient (CLI) | payer MEDICAID ==
--- NOTE | 2020-07-27 10:21 | PAINCON ---
[address] [address] PAIN MANAGEMENT CONSULTATION Name: JOSEFA HERNANDEZ Room: [facility].#: [id number] Admission: 07/25/20 Attend Phys: Carson Benitez MD Discharge: Date of : 81 Report #: [id number] THIS REPORT FOR: //name// cc: Luis Carlos Rodrigez Bruce R. DO ~ THIS REPORT FOR: //name// CC: Luis Carlos Benitez DATE OF SERVICE: 07/25/2020 CHIEF COMPLAINT: Pain in the left as well as the right arm. More pain in the left arm since surgery. HISTORY: The patient is a 35-year-old female who has been followed in the pain clinic because of chronic pain associated with her right arm. She continues to have some right arm weakness. This is because of a right hemispheric stroke at the age of 2. She has had some problems with her left arm. She had carpal tunnel surgery in the past. She was having some difficulty with muscle strength and numbness in her ring and little finger. She underwent surgery at the left elbow area. Overall, she feels that has improved somewhat. She is still having some increased pain and discomfort because of the use of her only functioning arm on the left side. 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 Still has some tingling in the ring and little fingers. ALLERGIES: No known drug allergies. CURRENT MEDICATIONS: Adderall 10 mg a.m. and 20 mg later, baclofen 20 mg, gabapentin 300 mg 2 tablets at bedtime, 2 tablets morning; ibuprofen 200 mg, Lyrica 75 mg. PAIN CLINIC ASSESSMENT AND PQRS: 1. The patient is not being treated for rheumatoid arthritis. She does have some arthritic changes in her right shoulder with a bone spur. 2. Height 5 feet 1 inch, weight 122 pounds, BMI is 23. 3. Vital Signs: Blood pressure 147/95, heart rate wnl, respiratory rate is 16, room air saturation 97.7. 4. Pain intensity 12/27. 5. Fall history: The patient has not fallen in the last 3 months. 6. Blood thinner. The patient is not on a blood thinning medication. 7. Hypertension. The patient is not being treated for hypertension. 8. Opioids greater than 6 weeks. The patient receives medication from one source the pain clinic. 9. Risk assessment tool, low for opioid use. 10. Functional [place] [address] PAIN MANAGEMENT CONSULTATION Name: JOSEFA HERNANDEZ Room: [facility]#: [id number] Admission: 07/25/20 Attend Phys: Carson Benitez MD Discharge: Date of : 81 Report #: [id number] 11. Recreational drug use. The patient denies. 12. Tobacco: The patient smokes 4-5 cigarettes daily. 13. Alcohol. The patient denies use of alcoholic beverages. PHYSICAL EXAMINATION: GENERAL: The patient is a well-developed, well-nourished white female. Appears her stated age. She is alert and oriented x 3. Her affect is appropriate. Speech is fluent. HEENT: Normocephalic, atraumatic. Extraocular eye muscles intact. Sclerae nonicteric. Mucous membranes are moist. NECK: Without adenopathy. The patient is wearing a facial covering. CHEST: Clear. HEART: Regular rate. ABDOMEN: Nontender. MUSCULOSKELETAL: Upper extremity muscle strength with weakness in the right side with flaccid paralysis. The patient also has some discomfort in the right shoulder. The patient has some weakness in her left hand with involvement of the ring and little finger. Lower extremity muscle strength judged to be 5/5 on the left. IMPRESSION: 1. Chronic pain on the right side, status post cardiovascular accident at age 2 with thalamic stroke. 2. Thalamic pain, right arm. 3. Weakness involving the left arm, status post ulnar surgery. RECOMMENDATIONS: We discussed treatment options with the patient. At this juncture, we will continue with her medications. A script for her medications of Adderall 20 mg one p.o. b.i.d. has been written. The patient will also continue with baclofen 20 mg 2 tablets t.i.d. She will continue with carbamazepine 200 mg 2 tablets a.m., 2 tablets at bedtime. The patient will also continue with Lyrica 75 mg b.i.d. We would like to thank you for letting us participate in her care. We hope she continues to improve. The patient will call us if she has any concerns. <ELECTRONICALLY SIGNED> By: Carson Benitez MD 07/27/20 1021 [id number]. Tim Benitez MD /brian
== END ==
LOC: M.PC 08:50
PROVIDERS: ATTEND Anesthesiology Pain Medicine
DX: M79.602 Pain in left arm (principal); M79.601 Pain in right arm; R53.1 Weakness; Z79.899 Other long term (current) drug therapy

== ENCOUNTER → 2021-01-11 | Outpatient (CLI) | payer MEDICAID ==
[~2021-01-11] MED LIST changes: +ADDERALL XR 2020 MG PO
== END ==
LOC: M.PC 09:30
PROVIDERS: ATTEND Anesthesiology Pain Medicine
DX: M79.601 Pain in right arm (principal); R53.1 Weakness; G89.29 Other chronic pain

== ENCOUNTER → 2021-04-05 | Outpatient (CLI) | payer MEDICAID | LOC: M.PC 09:28 | PROVIDERS: ATTEND Anesthesiology Pain Medicine | DX: M79.601 Pain in right arm (principal); M79.602 Pain in left arm; G89.29 Other chronic pain; Z79.899 Other long term (current) drug therapy; Z79.891 Long term (current) use of opiate analgesic ==

== ENCOUNTER → 2021-07-19 | Outpatient (CLI) | payer MEDICAID | LOC: M.PC 09:52 | PROVIDERS: ATTEND Anesthesiology Pain Medicine | DX: G89.29 Other chronic pain (principal); I69.30 Unspecified sequelae of cerebral infarction; I63.412 Cerebral infarction due to embolism of left middle cerebral artery; M62.81 Muscle weakness (generalized) ==

== ENCOUNTER → 2021-10-16 | Outpatient (CLI) | payer MEDICAID ==
[~2021-10-16] MED LIST changes: +NORVASC 2.5 MG2.5 M1 PO
== END ==
LOC: M.PC 08:12
PROVIDERS: ATTEND Anesthesiology Pain Medicine
DX: M79.602 Pain in left arm (principal); M79.601 Pain in right arm; Z79.899 Other long term (current) drug therapy

== ENCOUNTER → 2022-01-08 | Outpatient (CLI) | payer MEDICAID | LOC: M.PC 10:00 | PROVIDERS: ATTEND Anesthesiology Pain Medicine | DX: M79.601 Pain in right arm (principal); M79.602 Pain in left arm; G89.29 Other chronic pain; Z79.899 Other long term (current) drug therapy ==